=== PATIENT | male | born 1965 | race Caucasian/White ===

== ENCOUNTER 2022-09-11 08:35 | Emergency (ER) | payer SELFPAY ==
--- OUTSIDE RECORDS SUMMARY | 2022-09-11 09:10 | XMS REPORT | Continuity of Care Document ---
:1965 Author Organization [facility] t Address [address] [place] [address] Care Team Providers Name Role Phone NATALIA BERRY Attending Clinician Unavailable AMMON MCGEE Attending Clinician Unavailable NONE, AVAILABLE Attending Clinician Unavailable NATALIA BERRY Admitting Clinician Unavailable AMMON MCGEE Admitting Clinician Unavailable DENNYS GMÓEZ Admitting Clinician Unavailable NONE, AVAILABLE Admitting Clinician Unavailable Problems Condition Condition Condition Status Onset Resolution Last Treating Co mments Source Name Details Category Date Date Treatment Clinician Date Cellulitis Cellulitis Problem Active [facility] (LUF/LI V/SA) Hallucinat Hallucinat Problem Active [facility] ions [facility] ([facility]) Allergies, Adverse Reactions, Alerts This patient has no known allergies or adverse reactions. Medications Ordered Filled Start Stop Current Ordering Indication Dosage Frequency Signature Comments Components Source Medication Medication Date Date Medication? Clinician (SIG) Name Name Cephalexin Cephalexin Yes 500mg QID [facility] ([facility]) Ibuprofen Ibuprofen Yes 800mg TID [facility] 800 MG Oral 800 MG Oral L ukes Tablet Tablet [facility] (LUF/LI V/SA) Sulfamethox Sulfamethox Yes 2tab BID [facility] azole 800 azole 800 [facility] MG / MG / [facility] Trimethopri Trimethopri l m 160 MG m 160 MG (LUF/LI Oral Tablet Oral Tablet V /SA) Vital Signs Vital Name Observation Time Observation Value Comments Source Pulse Rate 2018-12-22 15:00:00 91 /min [facility] ([facility]) Respiratory Rate 2018-12-22 15:00:00 16 /min [facility] (LUF/SHAMA/SA) BP Systolic 2018-12-22 15:00:00 107 mm[Hg] [facility] (LUF/SHAMA/SA) BP Diastolic 2018-12-22 15:00:00 80 mm[Hg] [facility] (LUF/SHAMA/SA) Body Temperature 2018-12-22 12:48:00 98.2 F [facility] (LUF/SHAMA/SA) O2% BldC Oximetry 2018-12-22 12:48:00 98 % [facility] (LUF/SHAMA/SA) Height 2018-12-22 12:48:00 68 in [facility] (LUF/SHAMA/SA) Weight Measured 2018-12-22 12:48:00 152.78 lbs [facility] George [facility] (LUF/SHAMA/SA) BMI (Body Mass Index) 2018-12-22 12:48:00 23.4 kg/m2 [facility] (LUF/SHAMA/SA) Body Temperature 2018-01-07 10:23:00 98.9 F [facility] (LUF/SHAMA/SA) Respiratory Rate 2018-01-07 10:23:00 20 /min [facility] (LUF/SHAMA/SA) O2% BldC Oximetry 2018-01-07 10:23:00 100 % [facility] (LUF/SHAMA/SA) BP Systolic 2018-01-07 10:23:00 128 mm[Hg] [facility] (LUF/SHAMA/SA) BP Diastolic 2018-01-07 10:23:00 84 mm[Hg] [facility] (LUF/SHAMA/SA) Weight Measured 2018-01-07 10:23:00 144.99 lbs [facility] George william [facility] (LUF/SHAMA/SA) Height 2018-01-07 09:53:00 68 in [facility] (LUF/SHAMA/SA) BMI (Body Mass Index) 2018-01-07 09:53:00 22.2 [facility] (LUF/SHAMA/SA) Procedures This patient has no known procedures. Encounters Start End Encounter Admission Attending Care Care Encounter Source Date/Time Date/Time Type Type Clinicians Facility Department ID 2022-07-172022-07-17 Outpatient [facility] [id number] Joey 08:22:52 08:22:52 F Cooper 2022-06-21 2022-06-21 Outpatient SFA [facility] [id number] Joey 08:34:23 08:34:23 F Cooper 2018-12-22 2018-12-22 CELLULITIS E MCGEE, [facility] [place] [id number] 12:41:00 15:10:00 OF RIGHT [facility] [place] [address] (LUF/[address], V/SA) [place] [address] 2018-01-07 2018-01-07 BIPOLAR E DALIA, [facility] [place] [id number] 09:45:00 15:37:00 DISORDER BUDDHISM BELLEVUE Mindy es [place], [facility] D [address] (LUF/[address], V/SA) [place] [address] Results Test Description Test Time Test Comments Results Result Sourc e Comments CULTURE, BLOOD 2019-06-05 To start Specimen: [facility] 05:52:00 15mins after BloodCollected Medical 1st culture : 05/30/2019 [facility] SECOND DRAW = 16:58 Status: 1 aerobic and Final Last 1 anerobic Updated: Culture 06/05/2019 05:51 (1) To start 15mins after 1st culture SECOND DRAW = 1 aerobic and 1anerobic Culture Culture Result (Final) (Final) No Growth After 5 Days CULTURE, ANAEROBE 2019-06-05 To start Specimen: Memoria l BLOOD 05:52:00 15mins after BloodCollected Medical 1st culture : 05/30/2019 [facility] SECOND DRAW = 16:58 Status: 1 aerobic and Final Last 1 anerobic Updated: Culture 06/05/2019 05:51 (1) To start 15mins after 1st culture SECOND DRAW = 1 aerobic and 1anerobic Culture Culture Result (Final) (Final) No Growth After 5 Days CULTURE, BLOOD 2019-06-05 FIRST DRAW = 1 Specimen: Memori al 05:52:00 aerobic and 1 BloodCollected Medical anerobic : 05/30/2019 [facility] Culture 16:43 Status: Final Last Updated: 06/05/2019 05:51 (1) FIRST DRAW = 1 aerobic and 1 anerobic Culture Culture Result (Final) (Final) No Growth After 5 Days CULTURE, ANAEROBE 2019-06-05 FIRST DRAW = 1 Specimen: Mem orial BLOOD 05:52:00 aerobic and 1 BloodCollected Medical anerobic : 05/30/2019 [facility] n Culture 16:43 Status: Final Last Updated: 06/05/2019 05:51 (1) FIRST DRAW = 1 aerobic and 1 anerobic Culture Culture Result (Final) (Final) No Growth After 5 Days STAT LAB LACTIC ACID 2019-05-30 17:33:00 Test Item Value Reference Range Interpretation Comme nts LACTATE (test code = LAC) 0.59 mmol/l 0.90-1.70 L STAT x 1, [facility] 2019-05-30 17:15:00 Test Item Value Reference Range Interpretation Comments Sodium (test code = NA) 138 mmol/l 138-146 Potassium (test code = K) 4.0 mmol/l 3.5-4.9 Chloride (test code = CL) 104 mmol/l 98-109 IONIZED CALCIUM (test code = ICA) 1.12 1.12-1.32 A CO2 (test code = CO2) 25 mmol/l 24-29 Glucose (test code = GLU) 102 mg/dl 70-105 BUN (test code = BUN) 17 mg/dl 6-17 Creatinine (test code = CREA) 1.2 mg/dl 0.6-1.3 [facility] LAB CBC WITH AUTO [id number] 17:01:00 Test Item Value Reference Range Interpretation Comments WBC (test code = WBC) 9.50 10\\S\\3/ul 4.80-10.80 RBC (test code = RBC) 4.08 10\\S\\6/ul 4.70-6.10 L Hemoglobin (test code = HGB) 12.6 gm/dl 14.0-18.0 L Hematocrit (test code = HCT) 38.5 % 42.0-50.0 L MCV (test code = MCV) 94.4 fL 80.0-94.0 H MCH (test code = MCH) 30.9 pg 27.0-31.0 MCHC (test code = MCHC) 32.7 gm/dl 33.0-37.0 L Platelet (test code = PLT) 345 10\\S\\3/ul 130-400 RDW (test code = RDWVC) 13.1 % 11.5-14.5 MPV (test code = MPV) 9.6 fL 7.4-10.4 A NE% (test code = NE) 77.9 % 42.0-75.0 H LY% (test code = LY) 14.0 % 13.0-42.0 MO% (test code = MO) 6.5 % 4.0-14.0 EO% (test code = EO) 1.1 % 1.0-3.0 BA% (test code = BA) 0.4 % 1.0-3.0 L IG% (test code = IG%) 0.1 % 0.0-0.4 [facility], [id number] 05:41:00FIRST DRAW = 1 aerobic and 1 anerobic CultureSpecimen: BloodCollected: 12/22/2018 13:10 Status: Final Last Updated: 12/28/2018 05:41 (1) FIRST DRAW = 1 aerobic and 1 anerobic Culture Culture Result (Final) (Final) No [facility] ANAEROBE [id number] 05:41:00To start 15mins after 1st culture SECOND DRAW = 1 aerobic and 1 anerobic CultureSpecimen: BloodCollected: 12/22/2018 13:10 Status: Final Last Updated: 12/28/2018 05:41 (1) To start 15mins after 1st culture SECOND DRAW = 1 aerobic and 1anerobic Culture Culture Result (Final) (Final) No Growth [facility] CULTURE, [id number] 07:49:00RIGHT FOOTSpecimen: Foot RightCollected: 12/22/2018 14:00 Status: Final Last Updated: 12/24/2018 02:41 (1) RIGHT FOOT Culture Result (Final) (Final) Many Staphylococcus aureus Isolate (Final) (Final) Staphylococcus aureus Ciprofloxacin <=0.5 S Clindamycin 0.25 S Daptomycin 0.25 S Erythromycin <=0.25 S Gentamicin <=0.5 S Levofloxacin <=0.12 S Linezolid 2 S Moxifloxacin <=0.25 S Oxacillin <=0.25 S Rifampicin <=0.5 S Tetracycline <=1 S Tigecycline <=0.12 S Trimeth/Sulfa <=10 S Vancomycin <=0.5 S Cefoxitin Sc (+/-) Negative - ICR (+/-) Negative -[facility] COMP MIN 3 [id number] 13:47:18Procedure: XR FOOT COMP MIN 3 VWOrder Date: 12/22/2018 12:54 PMOrdering Provider: KRISTOFER Raminical Indication: [id number]: Foot swellingComparison: NoneFindings:There is hallux valgus deformity of the great toe. Mild soft tissue swelling isseen overlying the first MTP joint. There is also mild generalized soft tissueswelling. No acute fracture or focal osseous destruction is present. Posteriorcalcaneal enthesophyte is present.IMPRESSION:No acute osseous abnormality.Mild soft tissue swelling about the foot.This final report was electronically signed by Dr Warren Méndez MD 12/22/20181:40 PMDictated By: ISABEL MÉNDEZKDate: 12/22/2018 13:40[facility] LAB CHEM 8 2018-12-22 13:31:00 Test Item Value Reference Range Interpretation Comments Sodium (test code = NA) 138 mmol/l 138-146 Potassium (test code = K) 4.0 mmol/l 3.5-4.9 Chloride (test code = CL) 102 mmol/l 98-109 IONIZED CALCIUM (test code = ICA) 1.13 CO2 (test code = CO2) 25 mmol/l 24-29 Glucose (test code = GLU) 133 mg/dl 70-105 H BUN (test code = BUN) 15 mg/dl 6-17 Creatinine (test code = CREA) 1.1 mg/dl 0.6-1.3 [facility] CBC WITH AUTO [id number] 13:30:00 Test Item Value Reference Range Interpretation Comments WBC (test code = WBC) 10.82 10\\S\\3/ul 4.80-10.80 H RBC (test code = RBC) 4.68 10\\S\\6/ul 4.70-6.10 L Hemoglobin (test code = HGB) 14.0 gm/dl 14.0-18.0 Hematocrit (test code = HCT) 44.1 % 42.0-50.0 MCV (test code = MCV) 94.2 fL 80.0-94.0 H MCH (test code = MCH) 29.9 pg 27.0-31.0 MCHC (test code = MCHC) 31.7 gm/dl 33.0-37.0 L Platelet (test code = PLT) 378 10\\S\\3/ul 130-400 RDW (test code = RDWVC) 13.1 % 11.5-14.5 MPV (test code = MPV) 9.3 fL 7.4-10.4 A NE% (test code = NE) 75.7 % 42.0-75.0 H LY% (test code = LY) 15.7 % 13.0-42.0 MO% (test code = MO) 6.8 % 4.0-14.0 EO% (test code = EO) 1.1 % 1.0-3.0 BA% (test code = BA) 0.6 % 1.0-3.0 L IG% (test code = IG%) 0.1 % 0.0-0.4 [facility] S[facility] [id number] 11:51:00 Test Item Value Reference Interpretation Comments Range PH (test code = UPH) 6.0 Specific [place] 1.025 (test code = USPGR) Amphetamines (test Presumptive code = AMPHET) Positive; Confirmation Upon Request FT (test code = CHIO) Negative (qualifier value) Benzodiazepines (test Presumptive code = BENZO) Positive; Confirmation Upon Request FT (test code = GONZALO) Negative (qualifier value) FT (test code = MTD) Negative (qualifier value) FT (test code = Negative OPIAT) (qualifier value) FT (test code = PCP) Negative The fol lowing (qualifier value) table prov ides an interpretive gu michael for the Drugs o f Abuse ran on th e [employer] 5.1 analyzer listed there in: Amphetamines < 1000 ng/ml = Negative Barbituates < 2 00 ng/ml = Negativ e Benzodiazapines < 200 ngml = Negative Cocain e < 300 ng/ml = Negative Methad one < 300 ng/ml = Negative Opiate < 300 ng/ml = Negative PCP < 25 ng/ml = Negativ e THC < 50 ng/ml = Negative Result s equal to or greater than th e above cut-off values = Presumptive Positive. Confirmation of Presumptive Positive result s are available u nova request. Cannabinoids, THC Presumptive (test code = THC) Positive; Confirmation Upon Request [address] (Ultra Sensitive)2018-01-07 11:20:00 Test Item Value Reference Range Interpretation Comments TSH (test code = TSH) 3.15 mIU/L 0.47-4.68 [id number] 10:55:00 Test Item Value Reference Range Interpretation Comments Glucose (test code 87 mg/dl 75-110 = GLU) BUN (test code = 32.0 mg/dl 6.0-17.0 H BUN) Creatinine (test 1.9 mg/dl 0.4-1.2 H code = CREA) Sodium (test code = 147 mmol/l 137-145 H NA) Potassium (test 4.5 mmol/l 3.5-5.0 code = K) Chloride (test code 102 mmol/l 98-107 = CL) CO2 (test code = 29 mmol/l 22-30 CO2) Calcium (test code 9.5 mg/dl 8.4-10.2 = CALC) T Protein (test 8.2 gm/dl 5.1-8.7 code = TP) Albumin (test code 4.8 gm/dl 3.5-4.6 H = ALB) A/G Ratio (test 1.4 % 1.1-2.2 code = AGRAT) AST (SGOT) (test 32 U/L 11-36 code = AST) ALT (SGPT) (test 27 U/L 11-40 code = ALT) Alkaline Phos (test 72 U/L 47-114 code = ALKP) Total Bilirubin 0.5 mg/dl 0.2-1.2 (test code = TBIL) Globulin (test code 3.4 gm/dl 2.3-3.5 = GLOBU) Calcium, Corrected 8.9 mg/dl 8.4-10.2 Various f ormulas exist (test code = for corrected s pamela CALCCORR) calcium results , each yielding differ ent values. This co rrected result was base d on the formula: Co rrected Calcium = Serum Calcium + [0.8 * ( 4 - SerumAlbumin)] EGFR if 48 [place] (test code mL/min/1.73m\\ = EGFRAA) S\\2 EGFR if Non- 40 Estimate d Glomerular [place] (test code mL/min/1.73m\\ Filtrat ion Rate (eGFR) = EGFRNA) S\\2 Reference Inter vals Decision Points for 18 years and older and average body ma ss: >= 60 Does not exc lude kidney disease. 30 - 59 Suggests mod erate chronic kidney disease and indicates t he need for further investigation including asses sment of proteinuria and cardiovascular factors. < 30 U sually indicates a nee d for referral for assessment and management of c hronic kidney failure. [address]-[facility] HospitalkinACETAMINOPHEN (Tyenol)2018-01-07 10:55:00 Test Item Value Reference Range Interpretation Comments Acetaminophen (test code = ACET) <10 ug/ml 10-30 L [address]SALICYLATES (Aspirin)2018-01-07 10:55:00 Test Item Value Reference Range Interpretation Comments Salicylate (test code <1.0 mg/dl 0.0-30.0 N Salicy lates Reference = SALI) Ranges: Therape utic 15 - 30 mg/dl [place] >30 mg/dl Funmi l >70 mg/dl [address]-fkinALCOHOL, [id number] 10:55:00 Test Item Value Reference Range Interpretation Comments Alcohol % (test code = 0 % 0.00-0.00 N Jason ol % 0.00 - 0.10 ALCPC) Sub-clinical 0. 11 - 0.20 Emotional Insta bility 0.21 - 0.30 Confusio n 0.31 - 0.40 Stupor 0.4 1 - 0.50 Coma >.50 Fatal nx50X[facility]db[facility]kinURINALYSIS WITH [id number] 10:53:00 Test Item Value Reference Range Interpretation Comments Color (test code = UCOLR) YELLOW Clarity (test code = UCLAR) CLEAR Glucose (test code = UGLUC) NEGATIVE NEGATIVE N Bilirubin (test code = SMALL NEGATIVE A UBILI) Ketones (test code = UKET) NEGATIVE NEGATIVE N Specific [place] (test code >=1.030 1.005-1.030 A = USPGR) Blood (test code = UBLD) NEGATIVE NEGATIVE N PH (test code = UPH) 6.0 4.5-8.0 A Protein (test code = UPROT) 30 NEGATIVE A Urobilinogen (test code = U 0.2 >0.2 N UROB) Nitrite (test code = UNITR) NEGATIVE NEGATIVE N Leukocyte Esterase (test NEGATIVE NEGATIVE N code = ULEUK) WBC (test code = WBCUR) None Seen 0-5 A RBC (test code = RBCUR) None Seen 0-5 A Epithial Cells (test code = 0-10 0-10 N U EPI) Mucous (test code = UMUC) None Seen None Seen N Bacteria (test code = 1+ None Seen,Trace A UBACT) Crystals Urine (test code = None Seen None Seen N URCRYS) Urine Casts (test code = UR Few Hyaline Casts None Seen A CAST) [facility]-[id number] 10:51:00 Test Item Value Reference Range Interpretation Comments CPK (test code = CPK) 335 U/L 30-135 [address]fme[facility] memorial hospitalCB WITH AUTO [id number] 10:34:00 Test Item Value Reference Range Interpretation Comments WBC (test code = 10.16 4.80-10.80 WBC) 10\\S\\3/ul RBC (test code = 4.65 10\\S\\6/ul 4.70-6.10 L RBC) Hemoglobin (test 14.3 gm/dl 14.0-18.0 code = HGB) Hematocrit (test 44.3 % 42.0-50.0 code = HCT) MCV (test code = 95.3 fL 80.0-94.0 H MCV) MCH (test code = 30.8 pg 27.0-31.0 MCH) MCHC (test code = 32.3 gm/dl 33.0-37.0 L MCHC) RDW (test code = 13.6 % 11.5-14.5 RDWVC) Platelet (test code 420 10\\S\\3/ul 130-400 H = PLT) MPV (test code = 9.7 fL 7.4-10.4 A "NOT MEASUR ED" MPV) RESULTS ARE DIS PLAYED WHEN THE INSTRU MENT HAS A SUPPRESSE D OR UNREPORTABLE RE SULT. THIS WILL MOST OFTEN HAPPEN WITH THE MPV WHEN THERE IS A N ABNORMAL PLATEL ET DISTRIBUTION DU E TO A CRITICAL LOW VA LUE OR PLATELET CLUMPI NG. THE RDW MAY BE SUPPRESSED IF T HERE ARE MULTIPLE PE AKS PRESENT ON THE RBC HISTOGRAM. IN T HIS CASE, A MANUAL REVIEW OF THE SLIDE WI LL BE PERFORMED, AND RBC MORPHOLOGY WILL BE NOTED ON THE RE PORT. NE% (test code = 67.1 % 42.0-75.0 NE) LY% (test code = 19.8 % 13.0-42.0 LY) MO% (test code = 9.8 % 4.0-14.0 MO) EO% (test code = 2.2 % 1.0-3.0 EO) BA% (test code = 0.7 % 1.0-3.0 L BA) IG% (test code = 0.4 % 0.0-0.4 IG%) [address]-[id number] 08:22:00 Test Item Value Reference Range Interpretation Comments Glucose (test code 70 mg/dl 75-110 L = GLU) BUN (test code = 17.0 mg/dl 6.0-17.0 BUN) Creatinine (test 0.9 mg/dl 0.4-1.2 code = CREA) Sodium (test code = 146 mmol/l 137-145 H NA) Potassium (test 4.9 mmol/l 3.5-5.0 code = K) Chloride (test code 108 mmol/l 98-107 H = CL) CO2 (test code = 26 mmol/l 22-30 CO2) Calcium (test code 9.6 mg/dl 8.4-10.2 = CALC) T Protein (test 6.5 gm/dl 5.1-8.7 code = TP) Albumin (test code 3.8 gm/dl 3.5-4.6 = ALB) A/G Ratio (test 1.4 % 1.1-2.2 code = AGRAT) AST (SGOT) (test 15 U/L 11-36 code = AST) ALT (SGPT) (test 23 U/L 11-40 code = ALT) Alkaline Phos (test 50 U/L 47-114 code = ALKP) Total Bilirubin 0.3 mg/dl 0.2-1.2 (test code = TBIL) Globulin (test code 2.7 gm/dl 2.3-3.5 = GLOBU) Calcium, Corrected 9.8 mg/dl 8.4-10.2 Various f ormulas exist (test code = for corrected s pamela CALCCORR) calcium results , each yielding differ ent values. This co rrected result was base d on the formula: Co rrected Calcium = Serum Calcium + [0.8 * ( 4 - SerumAlbumin)] EGFR if >60 [place] (test code mL/min/1.73m\\ = EGFRAA) S\\2 EGFR if Non- >60 Estimate d Glomerular [place] (test code mL/min/1.73m\\ Filtrat ion Rate (eGFR) = EGFRNA) S\\2 Reference Inter vals Decision Points for 18 years and older and average body ma ss: >= 60 Does not exc lude kidney disease. 30 - 59 Suggests mod erate chronic kidney disease and indicates t he need for further investigation including asses sment of proteinuria and cardiovascular factors. < 30 U sually indicates a nee d for referral for assessment and management of c hronic kidney failure. [facility] (Ultra Sensitive)2017-06-23 08:22:00 Test Item Value Reference Range Interpretation Comments TSH (test code = TSH) 2.54 mIU/L 0.47-4.68 [facility] WITH AUTO [id number] 08:13:00 Test Item Value Reference Range Interpretation Comments WBC (test code = 6.88 10\\S\\3/ul 4.80-10.80 WBC) RBC (test code = 4.57 10\\S\\6/ul 4.70-6.10 L RBC) Hemoglobin (test 14.3 gm/dl 14.0-18.0 code = HGB) Hematocrit (test 43.3 % 42.0-50.0 code = HCT) MCV (test code = 94.7 fL 80.0-94.0 H MCV) MCH (test code = 31.3 pg 27.0-31.0 H MCH) MCHC (test code = 33.0 gm/dl 33.0-37.0 MCHC) RDW (test code = 13.4 % 11.5-14.5 RDWVC) Platelet (test code 354 10\\S\\3/ul 130-400 = PLT) MPV (test code = 10.4 fL 7.4-10.4 A "NOT MEASUR ED" MPV) RESULTS ARE DIS PLAYED WHEN THE INSTRU MENT HAS A SUPPRESSE D OR UNREPORTABLE RE SULT. THIS WILL MOST OFTEN HAPPEN WITH THE MPV WHEN THERE IS A N ABNORMAL PLATEL ET DISTRIBUTION DU E TO A CRITICAL LOW VA LUE OR PLATELET CLUMPI NG. THE RDW MAY BE SUPPRESSED IF T HERE ARE MULTIPLE PE AKS PRESENT ON THE RBC HISTOGRAM. IN T HIS CASE, A MANUAL REVIEW OF THE SLIDE WI LL BE PERFORMED, AND RBC MORPHOLOGY WILL BE NOTED ON THE RE PORT. NE% (test code = 64.9 % 42.0-75.0 NE) LY% (test code = 23.1 % 13.0-42.0 LY) MO% (test code = 8.0 % 4.0-14.0 MO) EO% (test code = 2.8 % 1.0-3.0 EO) BA% (test code = 0.9 % 1.0-3.0 L BA) IG% (test code = 0.3 % 0.0-0.4 IG%) [facility]
--- NOTE | 2022-09-11 09:14 | EDPHYS ---
Physician Documentation [facility] Name: Keyon Sue Age: 57 yrs Sex: Male : 1965 Arrival Date: 09/11/2022 Time: 08:37 Bed 13 Private MD: ED Physician Deon Vazquez HPI: 09/11 08:50 This 57 yrs old Male presents to ER via Ambulatory with complaints of Facial Swelling pm1 and Dental pain. 08:50 The patient presents with pain, swelling. The problem is located in the upper right pm1 first molar. Onset: The symptoms/episode began/occurred 1 month(s) ago. Duration: The symptoms Patient reports it is has been ongoing for awhile but required antibiotics about 1 month ago for the same issue, dental pain with facial swelling in the same area. Patient had not followed up with dentist yet because he is in rehabilitation for methamphetamine abuse. Modifying factors: The symptoms are alleviated by nothing, the symptoms are aggravated by eating. Patient's issue is on the side that he chews. Associated signs and symptoms: Pertinent positives: pain, swelling, Pertinent negatives: fever, inability to eat. Severity of symptoms: in the emergency department the symptoms are actually worse. The patient has experienced similar episodes in the past, chronic with acute episode about one month ago, resolved with antibiotics. Current swelling started yesterday. The patient has not recently seen a physician. Historical: - Allergies: 08:49 No Known Allergies; ss - Home Meds: 08:49 None [Active]; ss - PMHx: 08:49 None; ss - PSHx: 08:49 L 4th finger; ss - Immunization history:: Adult Immunizations up to date. - Social history:: Smoking status: unknown. ROS: 08:50 Constitutional: Negative for fever, chills, and weight loss, Cardiovascular: Negative pm1 for chest pain, palpitations, and edema, Respiratory: Negative for shortness of breath, cough, wheezing, and pleuritic chest pain. 08:50 Neck: Negative for injury, pain, and swelling, Skin: Negative for injury, rash, and discoloration, Neuro: Negative for headache, weakness, numbness, tingling, and seizure. 08:50 ENT: Positive for dental pain, facial swelling. 08:50 All other systems are negative. Exam: 08:50 Constitutional: This is a well developed, well nourished patient who is awake, alert, pm1 and in no acute distress. 08:50 Skin: Warm, dry with normal turgor. Normal color with no rashes, no lesions, and no evidence of cellulitis. 08:50 Head/face: Noted is swelling, that is mild, of the right cheek. 08:50 ENT: Mouth: Lips: normal, moist, Oral mucosa: normal, pink and intact, moist, negative for trismus and tongue swelling, Posterior pharynx: no acute changes, Dental exam: dental caries, that is moderate, gum swelling, that is mild, specifically in the upper right second molar (#2) and upper right first molar (#3), pain, that is moderate, specifically in the upper right first molar (#3), Voice: no acute changes. 08:50 Cardiovascular: Exam negative for acute changes, Rate: normal, Rhythm: regular, Pulses: no pulse deficits are appreciated. 08:50 Respiratory: Exam negative for acute changes, respiratory distress, shortness of breath. 08:50 Neuro: Exam negative for acute changes, Orientation: is normal, Mentation: is normal, Motor: is normal, Gait: is steady, at a normal pace, without difficulty. Vital Signs: 08:48 BP 134 / 100; Pulse 80; Resp 17; Temp 98.1(TE); Pulse Ox 98% on R/A; Weight 74.84 kg; ss Height 5 ft. 8 in. (172.72 cm); Pain 5/10; 08:52 BP 141 / 108; ss 08:48 Body Mass Index 25.09 (74.84 kg, 172.72 cm) MDM: 08:42 Patient medically screened. pm1 08:50 Data reviewed: vital signs. pm1 08:55 ED course: Antoni CONDE contacted at patient's rehabilitation center by Charge nurse. As pm1 result of patient being at rehabilitation center, will give the patient tramadol here because he has pain and swelling, but will not give him a prescription for a controlled substance. Will discharge home with NSAID and antibiotics. 08:55 I considered the following discharge prescriptions or medication management in the pm1 emergency department Augmentin or clindamycin for treatment due to abx therapy 1 month ago for the same issue. Discussed with patient and he did not like the potential side effects of Augmentin or clindamycin so he requested amoxicillin again. Informed him to return to the ER or see a dentist if no improvement in 2-3 days. 08:55 ED course: No abscess present in gums to sergey/drain. pm1 08:55 Differential diagnosis: dental caries, gingivitis, dental abscess, gingivostomatitis. pm1 09:09 Counseling: I had a detailed discussion with the patient and/or guardian regarding: the pm1 historical points, exam findings, and any diagnostic results supporting the discharge/admit diagnosis, the need for outpatient follow up, a dentist, to return to the emergency department if symptoms worsen or persist or if there are any questions or concerns that arise at home. 09:09 Care significantly affected by the following Social Determinants of Health: Misuse of pm1 alcohol and/or drugs, Tylenol and NSAIDs for pain relief at home. Administered Medications: 09:18 Drug: Amoxicillin 500 mg Route: PO; jh5 09:18 Drug: traMADol 50 mg Route: PO; jh5 09:18 Drug: Ketorolac 60 mg Route: IM; Site: left gluteus; jh5 Disposition: 10:24 Co-signature as Attending Physician, Deon Vazquez MD I agree with the assessment and kdr plan of care. Disposition Summary: 09/11/22 09:14 Discharge Ordered Location: Home pm1 Problem: new pm1 Symptoms: have improved pm1 Condition: Stable pm1 Diagnosis - Periapical abscess without sinus pm1 Followup: pm1 - With: Emergency Department - When: As needed - Reason: Worsening of condition Followup: pm1 - With: Private Physician - When: 2 - 3 days - Reason: Recheck today's complaints, Continuance of care, Re-evaluation by your physician Discharge Instructions: - Discharge Summary Sheet pm1 - Dental Abscess pm1 - Dental Pain pm1 - Diet and Dental Disease pm1 Forms: - Medication Reconciliation Form pm1 - Thank You Letter pm1 - Antibiotic Education pm1 - Prescription Opioid Use pm1 Prescriptions: - Amoxicillin 500 mg Oral Capsule - take 1 capsule by ORAL route every 8 hours for 10 days; 30 tablet; Refills: 0, pm1 Product Selection Permitted - Diclofenac Sodium 75 mg Oral tablet,delayed release (DR/EC) - take 1 tablet by ORAL route 2 times per day As needed; 30 tablet; Refills: 0, pm1 Product Selection Permitted Signatures: Deon Vazquez MD MD kdr Alvina Chairez, RN RN ss Wicho Herbert, SUPERVISOR FLESHING SUPERVISOR FLESHING pm1 Ewa Yang, ELTON RN jh5
--- NOTE | 2022-09-11 09:14 | ER ---
Nurse's Notes [facility] Name: Keyon Sue Age: 57 yrs Sex: Male : 1965 Arrival Date: 09/11/2022 Time: 08:37 Bed 13 Private MD: Diagnosis: Periapical abscess without sinus Presentation: 09/11 08:48 Chief complaint: Patient states: R sided facial swelling/ dental pain that patient ss noticed yesterday. Coronavirus screen: Client denies travel out of the [place] in the last 14 days. Ebola Screen: Patient denies exposure to infectious person. Patient denies travel to an Ebola-affected area in the 21 days before illness onset. Initial Sepsis Screen: Does the patient meet any 2 criteria? No. Patient's initial sepsis screen is negative. Does the patient have a suspected source of infection? No. Patient's initial sepsis screen is negative. Risk Assessment: Do you want to hurt yourself or someone else? Patient reports no desire to harm self or others. Onset of symptoms was September 10, 2022. 08:48 Method Of Arrival: Ambulatory ss 08:48 Acuity: ZENOBIA 4 ss Triage Assessment: 09:24 General: Appears in no apparent distress. uncomfortable, Behavior is calm, cooperative, jh5 appropriate for age. Pain:. Historical: - Allergies: 08:49 No Known Allergies; ss - Home Meds: 08:49 None [Active]; ss - PMHx: 08:49 None; ss - PSHx: 08:49 L 4th finger; ss - Immunization history:: Adult Immunizations up to date. - Social history:: Smoking status: unknown. Screenin:55 [facility] ED Fall Risk Assessment (Adult) History of falling in the last 3 months, jh5 including since admission No falls in past 3 months (0 pts) Confusion or Disorientation No (0 pts) Intoxicated or Sedated No (0 pts) Impaired Gait No (0 pts) Mobility Assist Device Used No (0 pt) Altered Elimination No (0 pt) Score/Fall Risk Level 0 - 2 = Low Risk. Abuse screen: Denies threats or abuse. Denies injuries from another. Nutritional screening: No deficits noted. Tuberculosis screening: No symptoms or risk factors identified. Assessment: 08:53 Reassessment: Spoke with patient at this time; pt states he is in 3/10 pain at this [facility] time due to taking 2 Tylenol about 7am today and requested lights off. Pt is now resting on stretcher in [facility]. Vital Signs: 08:48 BP 134 / 100; Pulse 80; Resp 17; Temp 98.1(TE); Pulse Ox 98% on R/A; Weight 74.84 kg; Height 5 ft. 8 in. (172.72 cm); Pain 5/10; 08:52 BP 141 / 108; ss 08:48 Body Mass Index 25.09 (74.84 kg, 172.72 cm) ED Course: 08:37 Patient arrived in ED. rg4 08:38 Wicho Herbert NP is PHCP. pm1 08:38 Deon Vazquez MD is Attending Physician. pm1 08:49 Triage completed. ss 08:49 Arm band placed on left wrist. ss 08:55 Patient has correct armband on for positive identification. Bed in low position. Call [facility] light in reach. Side rails up X 1. 08:55 No provider procedures requiring assistance completed. 5 09:24 Patient did not have IV access during this emergency room visit. 5 Administered Medications: 09:18 Drug: Amoxicillin 500 mg Route: PO; jh5 09:18 Drug: traMADol 50 mg Route: PO; 5 09:18 Drug: Ketorolac 60 mg Route: IM; Site: left gluteus; 5 Medication: 09:24 VIS not applicable for this client. [facility] Outcome: 09:14 Discharge ordered by . pm1 09:24 Discharged to home ambulatory. 5 09:24 Condition: good 09:24 Discharge instructions given to patient, Instructed on discharge instructions, follow up and referral plans. medication usage, safety practices, Demonstrated understanding of instructions, follow-up care, medications, Prescriptions given X 2. 09:25 Patient left the ED. [facility] Signatures: Alvina Chairez RN RN Wicho Herbert NP PROFILE SAW SETUP OPERATOR pm1 Elena Genao rg4 Ewa Yang RN RN [facility]
[2022-09-11] MEDS ORDERED: AMOXICILLIN TRIHYDR 250 MG CAP ONE (09:16)
[2022-09-11] MEDS ORDERED: TRAMADOL HCL 50 MG TAB ONE (09:17)
[2022-09-11] MEDS ORDERED: KETOROLAC 30 MG/ML INJ ONE (09:17)
[2022-09-11 09:35] VITALS: TEMP 98.1; O2SAT 98
[2022-09-11 09:36] VITALS: BP 141/108
== END 2022-09-11 09:25 | disposition home or self-care (01) ==
LOC: ER 08:35
DX: K04.7 Periapical abscess without sinus (principal)